=== PATIENT | female | born 1965 | race Caucasian/White ===

== ENCOUNTER 2017-07-30 13:03 | Emergency (ER) | payer OTHER ==
[~2017-07-30] VITALS: Ht 160 cm; Wt 97.5 kg
[2017-07-30 13:24] VITALS: BP 163/97
--- NOTE | 2017-07-30 13:59 | ED HEAD/FACIAL INJ COMPLAINT ---
History of Present Illness General Chief Complaint: Laceration Procedure Stated Complaint: BIBA MECHANICAL FALL; LAC TO LEFT SIDE OF HEAD Source: patient Exam Limitations: no limitations Vital Signs & Intake/Output Vital Signs & Intake/Output Vital Signs Date Time Temp Pulse Resp B/P B/P Pulse O2 O2 Flow FiO2 Mean Ox Delivery Rate 07/30 1420 Room Air Room Air 07/30 1324 98.2 106 18 163/97 99 Room Air Allergies Coded Allergies: Penicillins (Severe, SWELLING 07/30/17) Reconcile Medications Cholecalciferol (Vitamin D3) (Vitamin D3) 1,000 UNIT CAPSULE 1 CAP PO DAILY SUPPLEMENT (Reported) [place]-3 Fatty Acids/Fish Oil (Fish Oil 1,000 MG Capsule) 340 MG-1,000 MG CAPSULE 1 CAP PO BID SUPPLEMENT (Reported) Triage Note: PT TO ED S/P MECHANICAL TRIP AND FALL, PT REPORTING SHE DRIPPED OVER A CURB AND NOW HAS A SMALL LAC TO L EYE. BLEEDING CONTROLLED ON ARRIVAL, UTD ON TETANUS, NO LOC. Triage Nurses Notes Reviewed? yes Onset: Abrupt Severity: moderate LMP (ages 10-50): post menopausal : No HPI: 52yo female presents to ED complaining of fall prior to arrival. Patient states she was walking when she tripped over the curb and fell. Patient hit her head and her glasses broke, she sustained a laceration to left eyebrow. Patient did not black out or lose consciousness. Patient complaining of frontal headache however states she had a headache prior to her fall she attributes to "sinus pain". Patient denies visual changes, neck pain, abdominal pain, vomiting. Tetanus status is up-to-date. (Anna Whitfield) Past History Travel History Traveled to [place] past 21 day No Medical History Any Pertinent Medical History? see below for history Neurological: NONE EENT: NONE Cardiovascular: NONE Respiratory: obstructive sleep apnea Gastrointestinal: NONE Hepatic: NONE Renal: NONE Musculoskeletal: NONE Psychiatric: NONE Endocrine: NONE Blood Disorders: NONE Cancer(s): NONE Surgical History Surgical History: non-contributory Psychosocial History What is your primary language Occitan Tobacco Use: Never used ETOH Use: denies use Illicit Drug Use: denies illicit drug use Family History Hx Contributory? No (Anna Whitfield) Review of Systems Review of Systems Constitutional: Reports: no symptoms. EENTM: Reports: no symptoms. Respiratory: Reports: no symptoms. Cardiovascular: Reports: no symptoms. GI: Reports: no symptoms. Genitourinary: Reports: no symptoms. Musculoskeletal: Reports: see HPI. Skin: Reports: see HPI. Neurological/Psychological: Reports: see HPI. Hematologic/Endocrine: Reports: no symptoms. Immunologic/Allergic: Reports: no symptoms. All Other Systems: Reviewed and Negative (Giovanna RENEE,Anna Turcios) Physical Exam Physical Exam General Appearance: well developed/nourished, no apparent distress, alert, awake Head: 1.5cm laceration to left lateral eye brow with abraions to mid eyebrow, mild orbital tenderness and ecchymosis Eyes: Bilateral: normal appearance, PERRL, EOMI. Ears, Nose, Throat: normal pharynx, normal ENT inspection, hearing grossly normal Neck: normal inspection, supple, full range of motion, no midline tenderness Respiratory: normal breath sounds, no respiratory distress, lungs clear Cardiovascular: regular rate/rhythm Back: normal inspection, normal range of motion Extremities: abrasions to bilateral palms, no bony tenderness Psychiatric: awake, alert, oriented x 3 Cranial Nerves: normal hearing, normal speech, PERRL, CN II-XII intact Coordination/Gait: normal finger to nose Motor/Sensory: no motor/sensory deficits Skin: see laceration and abrasion to left eye brow (Giovanna RENEE,Anna Turcios) Progress Differential Diagnosis: ICH, orbit fracture, skull fracture, laceration, concussion Plan of Care: Orders Procedure Date/time Status CT HEAD WO IV CONTRAST 07/[address] MAXILLOFACIAL W/O CON 07/[address] CERV SPINE WO IV CONTRAST 07/30 141 Active Incidental lung nodules detected on CT scan, no fractures or intracranial abnormality detected. Wound closed with 2 stitches and Steri-Strips. Patient to follow-up with her primary care doctor. Patient educated on signs and symptoms of infection. Patient's tetanus status is up-to-date. The patient is answering questions readily, neurologically intact, ambulating without difficulty here in the emergency department. The patient agrees with the plan of care. Diagnostic Imaging: Viewed by Me: CT Scan. Discussed w/RAD: CT Scan. Radiology Impression: PATIENT: ESME CONTRERAS PRESENT AGE: 52 PATIENT ACCOUNT NO: [id number] : 63 LOCATION: [facility] ORDERING PHYSICIAN: Anna RENEE SERVICE DATE: 07/30/17 EXAM TYPE: CAT - CT CERV SPINE WO IV CONTRAST; CT HEAD WO IV CONTRAST; CT MAXILLOFACIAL W/O CON CT HEAD WITHOUT IV CONTRAST CT CERVICAL SPINE WITHOUT IV CONTRAST CT MAXILLOFACIAL WITHOUT IV CONTRAST INDICATION: Fall with head strike. COMPARISON: None available. TECHNIQUE: Multidetector CT acquisitions of the head , maxillofacial region, and cervical spine were obtained without IV contrast. Multiplanar reformats were acquired and utilized for image interpretation. FINDINGS: HEAD: There is no intracranial hemorrhage, hydrocephalus, extra-axial surface collection, midline shift, or other herniation pattern. Chao to white matter differentiation is diffusely maintained without evidence of an evolved acute territorial infarct. The basilar cisterns are preserved. No significant soft tissue abnormality. No acute osseous abnormality. The paranasal sinuses and the mastoid air cells are well-aerated. MAXILLOFACIAL: The mandible, maxilla, pterygoid plates, nasal bones, zygomatic arches, paranasal sinus fletcher, and bony orbits are intact. No acute osseous abnormality within the maxillofacial region. The paranasal sinuses and mastoid air cells remain well-aerated. Degenerative changes involving the left TMJ. There is left periorbital soft tissue swelling. CERVICAL SPINE: Straightening of the cervical lordosis. Moderate disc volume loss and vacuum phenomenon at C3-C4 and moderate disc volume loss with endplate osteophytes at C5-C6 and C6-C7. There is no acute fracture and there is no acute subluxation. The craniocervical and atlantoaxial articulations are normal. There is no prevertebral soft tissue swelling. No significant soft tissue abnormality within the neck. There are a few 4 mm nodules within the posterior left lung apex that can be further assessed with a nonemergent diagnostic CT of the chest for further follow up recommendations. IMPRESSION: 1. No acute intracranial abnormality. 2. No acute osseous abnormality within the cervical spine. Moderate cervical spondylosis. 3. Left periorbital soft tissue swelling/hematoma. No fractures. 4. There are a few 4 mm nodules within the posterior left lung apex that can be further assessed with a nonemergent diagnostic CT of the chest for further follow up recommendations. DICTATED BY: Mynor Carlson MD DATE/TIME DICTATED:07/30/171528 LEPIDOPTERIST:SAPNA DATE/TIME TRANSCRIBED:1528 CONFIDENTIAL, DO NOT COPY WITHOUT APPROPRIATE AUTHORIZATION. < Electronically signed in Other Vendor System> SIGNED BY: Mynor Carlson MD 07/30/17 [id number] (Anna Whitfield) Departure Departure Disposition: HOME OR SELF CARE Condition: Stable Clinical Impression Primary Impression: Fall Secondary Impressions: Laceration Referrals: Trevor Iyer MD (PCP/Family) Additional Instructions: Follow-up with your primary care doctor. You may take tylenol 500-1000mg every 6 hours and ibuprofen 600-800mg every 8 hours for pain. Return in 7 days for removal of stitches. Monitor for signs of infection such as redness, swelling, increasing pain at wound, cloudy drainage, return sooner with any of the symptoms. You were given information on signs and symptoms of a concussion. Return with any worsening headache, visual disturbances, vomiting, abdominal pain. Please note that there might be incidental findings in your evaluation that are unrelated to the current emergency department visit. Please notify your primary care doctor about this emergency department visit in order to obtain and review all of the testing performed so that these incidental findings can be monitored as needed. If you had an x-ray performed, please understand that some fractures may not be seen on the initial set of x-rays. If your symptoms persist you might need a repeat set of x-rays to check for such a fracture. If you had a laceration evaluated, please understand that foreign bodies such as glass or wood may not be visible to the naked eye or on plain x-rays. If the wound becomes red, swollen, increasingly more painful or if there is any drainage from the wound, please have it reevaluated by a physician for the possibility of a retained foreign body. If you're unable to follow up as outlined in the discharge instructions please return to the emergency department. Thank you for choosing the [facility] Emergency Department for your care. It was a pleasure to serve you today. Departure Forms: Customer Survey General Discharge Information (Anna Whitfield) PA/DIRECT OF REAL ESTATE Co-Sign Statement Statement: ED Attending supervision documentation- [] I saw and evaluated the patient. I have also reviewed all the pertinent lab results and diagnostic results. I agree with the findings and the plan of care as documented in the PA's/DIRECT OF REAL ESTATE's documentation. [X] I have reviewed the ED Record and agree with the PA's/DIRECT OF REAL ESTATE's documentation. [] Additions or exceptions (if any) to the PAs/DIRECT OF REAL ESTATE's note and plan are summarized below: [] (Steph MUNGUIA,Ehsan Perez) Procedures Laceration/Wound Repair Laceration/Wound Repair: Wound Location: left eyebrow Wound's Depth, Shape: linear Wound Length (cm): 1.5 Wound Explored: irrigated extensively Irrigated w/ Saline (ccs): 300 Betadine Prep? Yes Anesthesia: 1% lidocaine Volume Anesthetic (ccs): 4 Wound Repaired With: sutures, Steri-strips Suture Size/Type: 6:0, nylon Number of Sutures: 2 Tetanus Status: up to date Progress: Patient tolerated procedure well. (Giovanna RENEE,Anna Turcios)
[2017-07-30] MEDS ORDERED: VITAMIN D31000 UNI1 PO (14:19)
[2017-07-30] MEDS ORDERED: FISH OIL 1,0001 EACH PO (14:20)
--- NOTE | 2017-07-30 15:42 | CT SCAN REPORT ---
CT HEAD WITHOUT IV CONTRAST CT CERVICAL SPINE WITHOUT IV CONTRAST CT MAXILLOFACIAL WITHOUT IV CONTRAST INDICATION: Fall with head strike. COMPARISON: None available. TECHNIQUE: Multidetector CT acquisitions of the head, maxillofacial region, and cervical spine were obtained without IV contrast. Multiplanar reformats were acquired and utilized for image interpretation. FINDINGS: HEAD: There is no intracranial hemorrhage, hydrocephalus, extra-axial surface collection, midline shift, or other herniation pattern. Chao to white matter differentiation is diffusely maintained without evidence of an evolved acute territorial infarct. The basilar cisterns are preserved. No significant soft tissue abnormality. No acute osseous abnormality. The paranasal sinuses and the mastoid air cells are well-aerated. MAXILLOFACIAL: The mandible, maxilla, pterygoid plates, nasal bones, zygomatic arches, paranasal sinus fletcher, and bony orbits are intact. No acute osseous abnormality within the maxillofacial region. The paranasal sinuses and mastoid air cells remain well-aerated. Degenerative changes involving the left TMJ. There is left periorbital soft tissue swelling. CERVICAL SPINE: Straightening of the cervical lordosis. Moderate disc volume loss and vacuum phenomenon at C3-C4 and moderate disc volume loss with endplate osteophytes at C5-C6 and C6-C7. There is no acute fracture and there is no acute subluxation. The craniocervical and atlantoaxial articulations are normal. There is no prevertebral soft tissue swelling. No significant soft tissue abnormality within the neck. There are a few 4 mm nodules within the posterior left lung apex that can be further assessed with a nonemergent diagnostic CT of the chest for further follow up recommendations. IMPRESSION: 1. No acute intracranial abnormality. 2. No acute osseous abnormality within the cervical spine. Moderate cervical spondylosis. 3. Left periorbital soft tissue swelling/hematoma. No fractures. 4. There are a few 4 mm nodules within the posterior left lung apex that can be further assessed with a nonemergent diagnostic CT of the chest for further follow up recommendations.
== END 2017-07-30 15:57 ==
LOC: ERH 13:03
DX: S01.112A Laceration without foreign body of left eyelid and periocular area, initial encounter (principal); R51 Headache; W10.1XXA Fall (on)(from) sidewalk curb, initial encounter; W25.XXXA Contact with sharp glass, initial encounter; Y93.01 Activity, walking, marching and hiking; Y92.480 Sidewalk as the place of occurrence of the external cause